=== PATIENT | female | born 1990 | race African-American/Black ===

== ENCOUNTER 2017-05-18 22:23 | Emergency (ER) | payer SELFPAY ==
[2017-05-18] MEDS ORDERED: Lidocaine 4% Cream 5 GM TUBE w/ Tegaderm ONE (23:20)
[2017-05-18] MEDS ORDERED: Lidocaine 2% Jelly 5 ML TUBE ONE (23:33)
== END 2017-05-18 23:52 | disposition home or self-care (01) ==
LOC: ERS 22:23
DX: H60.02 Abscess of left external ear (principal); F17.210 Nicotine dependence, cigarettes, uncomplicated
CPT/HCPCS: 69000

== ENCOUNTER 2017-10-11 18:10 | Emergency (ER) | payer SELFPAY ==
[2017-10-11 18:46] LABS: #Basophils 0.1 thou/uL (0.0-0.2); #Eosinphils 0.3 thou/uL (0.0-0.7); #Lymphocytes 3.9 thou/uL (1.20-3.40); #Monocytes 1.2 thou/uL (0.11-0.59); #Neutrophils 9.5 thou/uL (1.40-6.50); %Basophils 0.4 % (0.0-1.0); %Eosinophils 1.9 % (0.0-10.0); %Lymphocytes 26.1 % (21.0-51.0); %Monocytes 7.8 % (0.0-10.0); %Neutrophils 63.7 % (42.0-75.0); Hemoglobin 11.5 g/dL (12.0-16.0); Mean Corpuscular HGB CONC 32.8 g/dL (32.0-36.0); Mean Corpuscular Hemoglobin 22.3 pg (27.0-31.0); Mean Platelet Volume 8.7 fL (7.4-10.4); Platelet Count 277 thou/uL (130-400); RBC Distribution Width 13.5 % (11.5-14.5); Red Blood Cell (RBC) Count 5.17 mill/uL (4.20-5.40); White Blood Cell (WBC) Count 14.9 thou/uL (4.8-10.8)
[2017-10-11 18:56] LABS: ALT (SGPT) 7 U/L (8-55); AST (SGOT) 14 U/L (5-34); Alkaline Phosphatase 104 U/L (40-150); Anion Gap 12 mmol/L (10-20); BUN (Urea Nitrogen) 7 mg/dL (7.0-18.7); Bilirubin, Total 0.4 mg/dL (0.2-1.2); CK (CPK) 144 U/L (29-168); Calc. Creatinine Clearance 0 mL/min (70-130); Calcium 9.4 mg/dL (7.8-10.44); Carbon Dioxide 24 mmol/L (22-29); Chloride 106 mmol/L (98-107); Estimated GFR-MDRD Greater than 90; Glucose 76 mg/dL (70-105); Lipase 35 U/L (8-78); Potassium 3.9 mmol/L (3.5-5.1); Sodium 138 mmol/L (136-145)
[2017-10-11 19:00] LABS: Anisocytosis SLIGHT = 6-15 cells (100X) (0-5/hpf); Hypochromia SLIGHT = 6-15 cells (100X) (0-5/hpf); Large Platelets SLIGHT; MDiff Complete? YES; Microcytosis SLIGHT = 6-15 cells (100X) (0-5/hpf); Ovalocytes SLIGHT = 2-5 cells (100X) (0-1/hpf); PLT Morphology Comment Appears Adequate; Polychromasia SLIGHT = 2-3 cells (100X) (0-2/hpf)
[2017-10-11 19:01] LABS: CKMB 0.5 ng/mL (0-6.6); Troponin I Less than 0.010 ng/mL (< 0.028)
[2017-10-11 19:03] LABS: BHCG - Serum Negative (NEGATIVE); Pregs Control Background? CLEAR/WHITE (CLR/WHITE); Pregs Control Bar Appear? YES (CONTROL BAR)
[2017-10-11] MEDS ORDERED: Lidocaine Viscous Sol 2% 15 ml UD Cup ONE (19:51)
[2017-10-11] MEDS ORDERED: Mag-Al 1200 mg/1200 mg/30 ML UDCUP ONE (19:51)
[2017-10-11 20:32] LABS: Bilirubin Negative (Negative); Blood, Urine Negative (Negative); Clarity CLOUDY (Clear); Glucose, Urine (Dipstick) Negative (Negative); Leukocyte Moderate (Negative); Nitrite Negative (Negative); Protein, Urine (Dipstick) Negative (Neg-Trace); Specific Gravity, Urine 1.018 (1.002-1.036)
--- NOTE | 2017-10-11 20:36 | ULT ---
GALLBLADDER ULTRASOUND: 10/11/17 HISTORY: Right upper quadrant pain. Real time imaging of the right upper quadrant shows fairly normal appearing gallbladder. No stones id entified. The common duct is 2 mm. The visualized liver parenchyma appears to be of mild increased ec hogenicity. The pancreas is obscured. Right kidney is normal in size and nonobstructed. IMPRESSION: Suggestion of some fatty change of the liver. No gallstones. POS: [facility]
[2017-10-11 20:37] LABS: Bacteria/HPF None Seen HPF (None Seen); Hyaline Casts/LPF 0-3 HYALINE CAST LPF (0-3 Hyaline); Pathc Cast-AUWi Flag 0.43 (0-2.49); Squamous Epithelial 0-3 HPF (0-3); WBC/HPF 21-50 HPF (0-3)
[2017-10-11 20:46] LABS: RBC/HPF 0-3 HPF (0-3)
== END 2017-10-11 21:05 | disposition home or self-care (01) ==
LOC: ERS 18:10
DX: R10.13 Epigastric pain (principal); F17.210 Nicotine dependence, cigarettes, uncomplicated
CPT/HCPCS: 76705; 80053; 81003; 81015; 82553; 83690; 84484; 84703; 85025; 93005

== ENCOUNTER 2018-11-30 13:31 | Outpatient (CLI) | payer MEDICAID ==
--- NOTE | 2018-11-30 14:36 | ULT ---
Ultrasound early obstetrical: DATE: 11/30/2018 HISTORY: 28-year-old female "Z 34.81, encounter for supervision of otherwise normal , first trimester " FINDINGS: Intrauterine gestational sac. pole, intrauterine. [place]-rump length range 20.5 cm - 26.4 cm, corresponding to 8 weeks 4 days to 9 weeks 0 days. Average ultrasound age 8 weeks 5 days. heart rate 155 bpm. No subchorionic hemorrhage. 1.5 cm right ovarian dominant follicle versus corpus luteal cyst. Ovarian size bilaterally within normal limits. No free fluid in the cul-de-sac. IMPRESSION: Live first trimester intrauterine gestation estimated to be approximately 8 weeks 5 days gestational age.
== END 2018-11-30 13:32 | disposition home or self-care (01) ==
LOC: BICULT 13:31
PROVIDERS: ATTEND Nurse Practitioner
DX: Z34.81 Encounter for supervision of other normal pregnancy, first trimester (principal); Z3A.08 8 weeks gestation of pregnancy
CPT/HCPCS: 76856

== ENCOUNTER 2019-02-21 14:25 | Outpatient (CLI) | payer OTHER ==
--- NOTE | 2019-02-21 15:17 | ULT ---
US OB Complete STANDARD History: Anatomy scan Comparison: Pelvic ultrasound 11/30/2018 Findings: Real-time grayscale, color, and spectral analysis of the gravid uterus was performed. Singl e viable intrauterine with average ultrasound age 21 week 4 day with estimated date of delivery June 30, 2019. The estimated weight is 15 ounces, 67th percentile. Biometry: Biparietal diameter: 5.16 cm, 21 week 5 day Head circumference: 19.45 cm, 21 week 5 day Abdominal circumference: 16.69 cm, 21 week 5 day Femur length: 3.47 cm, 21 weeks 0 day heart rate documented at 147 bpm. Amniotic fluid index: 14.9 cm. Cervical length: 4.8 cm Anatomy: The head, cerebellum, cisterna magna, lateral ventricles, four-chamber heart, stomach, kidne ys, cord insertion, bladder, spine, lips/nose, upper extremities, lower extremities, three-vessel cord are all normal. Impression: Normal single viable uterine .
== END 2019-02-21 14:26 | disposition home or self-care (01) ==
LOC: BICULT 14:25
DX: Z34.82 Encounter for supervision of other normal pregnancy, second trimester (principal); Z3A.21 21 weeks gestation of pregnancy
CPT/HCPCS: 76805

== ENCOUNTER 2019-05-10 15:36 | Outpatient (CLI) | payer OTHER ==
--- NOTE | 2019-05-10 16:31 | ULT ---
Limited Obstetrical Ultrasound INDICATION: Evaluate interval growth TECHNIQUE: Grayscale, M-mode Doppler, color Doppler and spectral Doppler images were obtained. Masood palencia is focused on the clinical indication. COMPARISON: February 21, 2019 FINDINGS: GESTATION: Number of gestations: Single. Presentation: Cephalic. heart rate: 126 bpm. Placental location: Anterior Previa: No evidence for previa. Cervical length: 4.22 DARRIN: 7.47 cm. LIMITED SURVEY: No abnormality as visualized. BIOMETRY: Biparietal diameter: 8.00cm, 32 weeks and 1 day, Not calculated.. Head circumference: 29.25 cm, 32 weeks and 2 days, Not calculated. Abdominal circumference: 28.58 cm, 32 weeks and 5 days, Not calculated. Femoral length: 6.15cm, 32 weeks and 0 days, Estimated weight: 1949 g g +/- 285g 4 lbs. 5 oz., 45th percentile The average gestational age by ultrasound is 32 weeks and 2 dayswith estimated due date of June. The estimated dates by clinical data is 32 weeks and 1 daywith estimated due date of July 04, 2019 . IMPRESSION: 1. Single live intrauterine gestation with size and dates as above. 2. Oligohydramnios. The DARRIN is below the 2.5th percentile for gestational age
== END 2019-05-10 15:37 | disposition home or self-care (01) ==
LOC: BICULT 15:36
PROVIDERS: ATTEND Obstetrics & Gynecology
DX: Z34.83 Encounter for supervision of other normal pregnancy, third trimester (principal); Z3A.32 32 weeks gestation of pregnancy; O41.03X0 Oligohydramnios, third trimester, not applicable or unspecified
CPT/HCPCS: 76815

== ENCOUNTER 2019-05-14 14:33 | Day surgery (SDC) | payer OTHER ==
[2019-05-14 15:03] VITALS: BP 119/73; TEMP 98.7; BMI 41.8
--- NOTE | 2019-05-14 16:19 | ULT ---
Exam: Nonstress biophysical profile HISTORY: Low amniotic fluid index COMPARISON: None TECHNIQUE: Nonstress biophysical profile was performed FINDINGS: Cervix: 5.6 cm Posterior placenta. No evidence of previa heart tones: 121 bpm Amniotic fluid index 9.4 cm Nonstress biophysical profile: tone 2 breathing 2 movements 2 Amniotic fluid 2 Total score 8 out of 8 IMPRESSION: Nonstress physical profile with a total score 8 out of 8
== END 2019-05-14 16:30 | disposition home or self-care (01) ==
LOC: L&D/OP 14:33
PROVIDERS: ATTEND Obstetrics & Gynecology
DX: O41.00X0 Oligohydramnios, unspecified trimester, not applicable or unspecified (principal); Z3A.00 Weeks of gestation of pregnancy not specified
CPT/HCPCS: 76819

== ENCOUNTER 2019-06-14 14:57 | Observation (INO) | payer OTHER ==
[2019-06-14 15:47] VITALS: BP 127/73; TEMP 98.1; BMI 42.0
--- NOTE | 2019-06-14 16:53 | ULT ---
Sonographic biophysical profile exam HISTORY: Oligohydramnios. FINDINGS: Good movement, tone, and breathing movement were demonstrated with sonography. Amniotic fluid index 3.7. The deepest pocket is in quadrant 2, measuring 2.0 cm greatest depth. IMPRESSION: Biophysical profile score 6/8. Oligohydramnios.
[2019-06-14] MEDS: Lactated Ringer's 1,000 ML IV SCH (17:52)
[2019-06-14] MEDS ORDERED: Ondansetron PF 4 MG/2 ML Vial IVP PRN (18:27)
[2019-06-14] MEDS ORDERED: Promethazine HCl 25 MG/ML VIAL IM PRN (18:27)
[2019-06-14] MEDS ORDERED: hydrALAZINE 20 MG/ML VIAL SLOW IVP PRN (18:27)
[2019-06-14] MEDS ORDERED: Betamet Acet/Betamet Na Ph 30 MG/5 ML VIAL ONE (18:38)
[2019-06-14] MEDS: Betamet Acet/Betamet Na Ph 30 MG/5 ML VIAL IM SCH (19:00)
[2019-06-15] MEDS: Lactated Ringer's 1,000 ML IV SCH (10:03)
--- NOTE | 2019-06-15 16:42 | ULT ---
OBSTETRIC SONOGRAM THIRD TRIMESTER?? UMBILICAL ARTERY DUPLEX? HISTORY: Third trimester gestation. Oligohydramnios. distress. FINDINGS: Single intrauterine gestation in breech presentation. Grade 2 placenta is anterior. Advance d age limits anatomic detail. Lower uterine segment is obscured. Amniotic fluid index 4.0 Good color and spectral Doppler flow within the umbilical artery. Systolic/diastolic ratio 2.4 Pulsatility index 0.9 Resistive index 0.6. IMPRESSION: Umbilical artery duplex evaluation within normal limits. Oligohydramnios. DARRIN 4.0.
[2019-06-15] MEDS: Betamet Acet/Betamet Na Ph 30 MG/5 ML VIAL IM SCH (18:43)
== END 2019-06-15 18:56 | disposition home or self-care (01) ==
LOC: L&D/OP 14:57 → L&D 18:27
PROVIDERS: ADMIT Family Medicine; ATTEND Family Medicine
DX: O41.03X0 Oligohydramnios, third trimester, not applicable or unspecified (principal); Z3A.37 37 weeks gestation of pregnancy
CPT/HCPCS: 76815; 76819; 93975; 96360; 96361; 96372; 99285; G0378; J0702

== ENCOUNTER 2019-06-16 15:04 | Day surgery (SDC) | payer OTHER ==
[2019-06-16] MEDS ORDERED: hydrALAZINE 20 MG/ML VIAL SLOW IVP PRN (15:35)
--- NOTE | 2019-06-16 16:10 | PDOC.FPROB ---
FMR OB H&P: Medications - Current Home Medications: Medication Instructions Recorded Confirmed Type No Known 05/14/19 06/14/19 History Allergies/Adverse Reactions: Allergies Allergy/AdvReac Type Severity Reaction Status Date / Time No Known Allergies Allergy Verified 05/14/19 15:00 FMR OB H&P: A/P - Problem List (1) Oligohydramnios Current Visit: Yes Status: Acute Code(s): O41.00X0 - OLIGOHYDRAMNIOS, UNSP TRIMESTER, NOT APPLICABLE OR UNSP (2) Term Current Visit: Yes Status: Acute Code(s): Z34.90 - ENCNTR FOR SUPRVSN OF NORMAL , UNSP, UNSP TRIMESTER Discussion: Date/Time: 06/16/19 1604 PCP: Wayne HPI: This is a 28 yo at 37.3 wks who comes in for decreased movement. She was here 2 days ago and told she had DARRIN of 4cm. She states she has not felt baby moving since about 5 am this morning, 10 hours ago. She denies leakage of fluid, bleeding, or discharge. Denies BROWN, visual changes, SOB, or swelling. History: OB hx: term 8 years ago PMH: denies asthma, dm, htn PSH: negative Meds: PNV All: NKDA Soc Hx: denies smoking (former smoker b4 ), alcohol, drugs Fam Hx: denies downs, sickle cell disease, or congenital defects GBS: unknown Blood type: B+ Ab screen: neg HIV: neg RPR: neg Hep B: neg Rubella: immune Failed 1 hr gtt, passed 3hr GC/CT: neg REVIEW OF SYSTEMS: Gen: no fever, chills, or sweats Neuro: no numbness/tingling, no weakness, denies headache ENT: denies congestion Eyes: no visual changes Resp: denies cough, no production, no SOB, no wheeze Card: denies chest pain, no palpitations GI: denies nausea, vomiting, diarrhea : no dysuria, no hematuria Skin: no rash, no erythema Psych: denies hx anxiety/depression Vitals: T: 98.5 R: 18 BP: 128/73 P:80 at: 98% on RA PHYSICAL EXAMINATION: General: NAD, alert and oriented x3 HEENT: EOMI, normal sclera Neck: Supple. Full ROM. Heart/Cardiovascular System: RRR, Cap refill < 3 seconds, no rub, no murmur Lungs/Respiratory System: clear to auscultation bilaterally. No increased work of breathing. Room air. Abdomen/Gastro-Intestinal System: no abdominal tenderness, normal bowel sounds, Gravid Extremities: Warm extremities. No cyanosis or edema. Neuro: No gross deficits appreciated Psychiatry: Awake, Alert and cooperative with exam Skin: no lesions, no rashes Musculoskeletal: Full ROM A/P: This is a 28 yo at 37.3 wks who comes in for decreased movement. FHT: 120 baseline, mod variability, no decels, accels present [place]: no contractions # -term - GBS unknown, patient is sure it was negative and she talked about it office , instructed her to f/u on Tuesday - Breech presentation once again today - has follow up with Dr. Black in clinic Tuesday to discuss version vs c/s # Oligohydramnios- resolved - Known since 32wks per review of notes - DARRIN 4.0, bpp 6/8 on 06/14/19 Pre-segura read DARRIN 8.9, bpp 8/8 on 06/16/19 6lbs 12 oz- hadlock 50%, s/d ratio pending D/c home, labor precautions discussed, all questions answered
[2019-06-16 16:43] VITALS: BMI 42.0
--- NOTE | 2019-06-16 16:46 | ULT ---
Limited Obstetrical Ultrasound INDICATION: Growth and umbilical artery evaluation TECHNIQUE: Grayscale, M-mode Doppler, color Doppler and spectral Doppler images were obtained. Imagin g is focused on the clinical indication. COMPARISON: Prior exam dated June 15, 2019 FINDINGS: GESTATION: Number of gestations: Single. Presentation: Breech. heart rate: 131 bpm. Placental location: Anterior Previa: No evidence for previa. Cervical length: Not well evaluated DARRIN: 8.9 cm. LIMITED SURVEY: Limited BIOMETRY: Biparietal diameter: 9.04cm, 36 weeks 4 days, 46 percentile. Head circumference: 32.84 cm, 37 weeks and 2 days, 24th percentile Abdominal circumference: 33.27 cm, 37 weeks and 1 day, 59th percentile Femoral length: 7.05cm, 36 weeks and 1 day, 19th percentile Estimated weight: 3056 g +/- 452g 6 lbs. 12 oz. +/- 16 ounces, 44th percentile The average gestational age by ultrasound is 36 weeks and 6 dayswith estimated due date of July. The estimated dates by clinical data is 37 weeks and 3 dayswith estimated due date of July 04 0. Umbilical artery spectral Doppler imaging: There is persistent diastolic flow. The systolic diastolic ratio at the placenta was 2.27, at mid cord 1.97 and at the insertion 2.98. IMPRESSION: 1. Single live intrauterine gestation with size and dates as above.
--- NOTE | 2019-06-16 16:47 | ULT ---
LIMITED OBSTETRICAL ULTRASOUND FOR BIOPHYSICAL PROFILE INDICATION: Decreased movement TECHNIQUE: Grayscale, M-mode Doppler, color Doppler and spectral Doppler images were obtained. Biophy sical profile was submitted by the mechanical engineering technician. Imaging is focused on the clinical indication. COMPARISON: No relevant prior studies available. GESTATION: Number of gestations: Single. Presentation: Breech. heart rate: 131 bpm. Placental location: Anterior Previa: No evidence for previa. Cervical length: Not well seen DARRIN: 8.9 cm. Biophysical profile: tone: 2 out of 2. breathin out of 2 movements: 2 out of 2 Amniotic fluid level: 2 out of 2 IMPRESSION: 1. Biophysical profile of 8 out of 8 2. Breech presentation.
== END 2019-06-16 16:58 | disposition home or self-care (01) ==
LOC: L&D/OP 15:04
PROVIDERS: ATTEND Family Medicine
DX: O41.03X0 Oligohydramnios, third trimester, not applicable or unspecified (principal); O36.8130 Decreased fetal movements, third trimester, not applicable or unspecified; Z3A.37 37 weeks gestation of pregnancy; Z87.891 Personal history of nicotine dependence
CPT/HCPCS: 59025; 76815; 76819; 93975; 99282

== ENCOUNTER 2019-06-18 14:01 | Day surgery (SDC) | payer OTHER ==
--- NOTE | 2019-06-18 16:42 | ULT ---
ULTRASOUND BIOPHYSICAL PROFILE DOPPLER DUPLEX: DATE: 06-18-2019 HISTORY: 28-year-old female in 3rd trimester of with oligohydramnios. TECHNIQUE: Grayscale, color flow, and spectral analysis, limited, of intrauterine gestation, and umbilical arter y. FINDINGS: breathin tone: 2 movement: 2 Amniotic fluid volume: 2 Umbilical artery perimeters: Peak systolic velocity, end diastolic velocity, S/D ratio, and resistive index: At placenta: 38.9 cm/s, 18.2 cm/s, 2.14, 0.53 At mid-umbilicus: 29.1 cm/s, 13.2 cm/s, 2.20, 0.55 At cord insertion: 45.4 cm/s, 13.2 cm/s, 3.44, 0.71 heart rate: 125 bpm DARRIN: 8 cm lie: Breech IMPRESSION: 1. Normal biophysical profile score of 8/8, excluding the non-stress test. 2. Umbilical artery Doppler values as above. jn POS: OFF
[2019-06-18] MEDS ORDERED: hydrALAZINE 20 MG/ML VIAL SLOW IVP PRN (17:10)
--- NOTE | 2019-06-18 17:12 | PDOC.LDHP ---
Labor and Delivery H&P Chief complaint: other (NST/BPP) HPI: 28 y/o at 37w5d, patient of Dr. Black, presents for scheduled NST/BPP for oligohydramnios. Patient has no complaints today. Denies VB, LOF, ctx, or decreased FM. ROS neg for HEENT, CV, pulm, GI, , neuro, psych, skin, musculoskeletal, or constitutional symptoms other than mentioned above. OB History Details: 1 prior term Current complications: oligohydramnios Past Medical History: None Current medications: pre- vitamins Previous surgical history: none Allergies/Adverse Reactions: Allergies Allergy/AdvReac Type Severity Reaction Status Date / Time No Known Allergies Allergy Verified 06/16/19 16:50 Social history: none - Physical Exam Vital signs reviewed and normal: yes General: NAD, resting Lungs: nonlabored breathing Abdomen: gravid FHT: category 1 (130s, mod variability, + accels, no decels) [place] contractions every: None - Assessment 28 y/o at 37w5d with BPP 8/8 (fluid now normal) and reactive NST. Also , noted to be breech on US. - Plan -: Will see Dr. Black in clinic on . D/c home with precautions.
== END 2019-06-18 16:04 | disposition home or self-care (01) ==
LOC: L&D/OP 14:01
PROVIDERS: ATTEND Family Medicine
DX: O41.03X0 Oligohydramnios, third trimester, not applicable or unspecified (principal); O32.1XX0 Maternal care for breech presentation, not applicable or unspecified; Z3A.37 37 weeks gestation of pregnancy
CPT/HCPCS: 76819; 93975; 99282

== ENCOUNTER 2019-06-21 08:36 | Day surgery (SDC) | payer OTHER ==
[2019-06-21 09:17] VITALS: BMI 42.0
[2019-06-21] MEDS ORDERED: hydrALAZINE 20 MG/ML VIAL SLOW IVP PRN (12:09)
[2019-06-21 12:42] LABS: Bilirubin Negative (Negative); Blood, Urine Negative (Negative); Clarity Clear (Clear); Glucose, Urine (Dipstick) Normal (Negative); Leukocyte Negative Leu/uL (Negative); Nitrite Negative (Negative); Protein, Urine (Dipstick) Negative (Neg-Trace); RBC/HPF 0-3 HPF (0-3); Squamous Epithelial 0-3 HPF (0-3); Urobilinogen Normal mg/dL (Less than 2); WBC/HPF 0-3 HPF (0-3)
[2019-06-21 12:43] LABS: Bacteria/HPF 1+ HPF (None Seen)
--- NOTE | 2019-06-21 12:57 | PRG ---
DATE OF SERVICE: 06/21/2019 PRIMARY OB: Dr. Robb Black. CHIEF COMPLAINT: Discharge. HISTORY OF PRESENT ILLNESS: The patient is a 28-year-old G2, P1 female with an intrauterine at 38 weeks and even, who presented to Labor and Delivery today after experiencing some discharge. She reports the discharge first looked thin and then became green. She had an appointment to see Dr. Black this morning, but for reasons unclear to staff here, she chose to come to the hospital for evaluation. The patient reports she has been having some contractions off and on in the last few days, but does not report any currently. The patient denies any history of gonorrhea and chlamydia. Denies fever, cough, fall, headache, chest pain, shortness of breath, nausea, vomiting, diarrhea, constipation, hip problems, knee problems. She has been having some lower back problems. She denies any vaginal bleeding, urinary urgency or frequency. PAST MEDICAL HISTORY: Negative. PAST SURGICAL HISTORY: Negative. ALLERGIES: NO KNOWN DRUG ALLERGIES. MEDICATIONS: vitamins. SOCIAL HISTORY: Denies drug, alcohol, tobacco use. OB LABS: Blood type is B positive. Antibody screen is negative. RPR is nonreactive in the first and third trimester. HIV nonreactive in the first and third trimester. Hepatitis B surface antigen is negative. She is rubella immune. GC and chlamydia negative. Her 1-hour glucose is 145 with her 3 hour at 190, 148, and 126. GBS is unavailable. REVIEW OF SYSTEMS: Per HPI. PHYSICAL EXAMINATION: VITAL SIGNS: Blood pressure 134/75, heart rate of 81, respiratory rate of 16, temperature 98.3. GENERAL: She appears to be in no acute distress. She is alert, oriented, cooperative, and pleasant to interact with. HEAD: Normocephalic, atraumatic. LUNGS: Clear to auscultation bilaterally. HEART: Regular rate and rhythm. ABDOMEN: Gravid, soft, nontender. EXTREMITIES: Nontender, nonedematous. She has no CVA tenderness. She does have some SI joint tenderness to palpation. GENITALIA: Vulva was without masses, lesions, or erythema. She does have what appears to be, she has moistening of her perineum. On speculum exam, the vagina is moist, discharge is mucousy with a greenish exudate present. Cervix is closed on digital exam. heart tracing shows the fetus with a baseline in the 120s with moderate long-term variability, positive 15 x 15 accelerations, no decelerations. Tocometer showing contractions about every 7 to 10 minutes. VPIII is negative for Trichomonas, yeast and Gardnerella. UA and GC chlamydia are pending. ASSESSMENT AND PLAN: The patient is a 28-year-old G2, P1 female with an intrauterine at 38 weeks, who is presenting for increased discharge over the course of the day. The patient has no evidence of yeast infection, bacterial vaginosis or Trichomonas given the color of her discharge. GC and chlamydia have been collected, which should result in next few days. Urinalysis also has been collected. The patient does not need to wait for the results of these items as fetus has a category 1 tracing and reactive NST. The patient's provider reported that she can come followup next week with him. Job ID: [id number]
[2019-06-22] MEDS ORDERED: FLU VACC QS2019-20(6MOS UP)/PF 60 MCG/0.5 ML SYRINGE IM ONE (09:30)
[2019-06-23 21:58] LABS: Chlamydia by PCR Not Detected (NotDetected); GC by PCR Not Detected (NotDetected)
== END 2019-06-21 12:25 | disposition home or self-care (01) ==
LOC: L&D/OP 08:36
PROVIDERS: ATTEND Family Medicine
DX: O99.89 Other specified diseases and conditions complicating pregnancy, childbirth and the puerperium (principal); N89.8 Other specified noninflammatory disorders of vagina; Z3A.38 38 weeks gestation of pregnancy
CPT/HCPCS: 81001; 87480; 87491; 87510; 87591; 87660; 99285

== ENCOUNTER 2019-06-27 19:45 | Inpatient (IN) | payer OTHER ==
[2019-06-28] MEDS ORDERED: Misoprostol 200 MCG TAB PR PRN (00:33)
[2019-06-28] MEDS ORDERED: Butorphanol Tartrate 1 MG/ML VIAL SLOW IVP PRN (00:33)
[2019-06-28] MEDS ORDERED: Ibuprofen 800 MG TAB PO PRN (00:33)
[2019-06-28] MEDS ORDERED: Diphenoxylate HCl/Atropine Tablet PO PRN (00:33)
[2019-06-28] MEDS ORDERED: HYDROcodone/Acetaminophen 5/325 mg Tablet PO PRN ×3 (00:33→15:49)
[2019-06-28] MEDS ORDERED: Carboprost 250 MCG/ML AMP IM PRN (00:33)
[2019-06-28] MEDS ORDERED: NS w/ Oxytocin 10 units 500 ML IV SCH ×2 (00:33)
[2019-06-28] MEDS ORDERED: hydrALAZINE 20 MG/ML VIAL SLOW IVP PRN ×2 (00:33→15:49)
[2019-06-28] MEDS ORDERED: Methylergonovine 0.2 MG/ML VIAL IM PRN (00:33)
[2019-06-28] MEDS ORDERED: Ondansetron PF 4 MG/2 ML Vial IVP PRN ×3 (00:33→15:49)
[2019-06-28] MEDS ORDERED: Lidocaine 1% (PF) 30 ML VIAL SC PRN (00:33)
[2019-06-28] MEDS ORDERED: Promethazine HCl 25 MG/ML VIAL IM PRN ×3 (00:33→15:49)
[2019-06-28 00:38] VITALS: BMI 42.2
[2019-06-28] MEDS: Lactated Ringer's 1,000 ML IV SCH ×3 (01:08→09:38)
[2019-06-28] MEDS: Misoprostol 100 MCG TAB PO SCH ×2 (01:29→05:01)
[2019-06-28 01:47] LABS: Hemoglobin 11.9 g/dL (12.0-16.0); Mean Corpuscular HGB CONC 33.9 g/dL (32.0-36.0); Mean Corpuscular Hemoglobin 23.7 pg (27.0-31.0); Mean Corpuscular Volume 69.9 fL (78.0-98.0); Mean Platelet Volume 9.6 fL (7.4-10.4); Platelet Count 242 thou/uL (130-400); RBC Distribution Width 13.8 % (11.5-14.5); Red Blood Cell (RBC) Count 5.01 mill/uL (4.20-5.40)
[2019-06-28 02:19] LABS: Hep B Surf Ag Non-Reactive S/CO (NonReactive)
[2019-06-28 03:38] LABS: Syphilis Antibody Nonreactive (Nonreactive); Syphilis Antibody Index 0.07 S/CO (<1.00 Non-Reactive)
[2019-06-28] MEDS ORDERED: Fentanyl 4 mcg/Bup 0.1% Cadd 100 ML ONE (08:25)
[2019-06-28] MEDS ORDERED: Lidocaine 2% MPF 10 ML AMP (For Epidural Use) ONE (08:50)
[2019-06-28] MEDS ORDERED: ePHEDrine/0.9% NaCl/PF SYRINGE 50 mg/10 ml SLOW IVP PRN (09:22)
[2019-06-28] MEDS ORDERED: Naloxone HCl 0.4 mg/ml Vial IVP PRN ×2 (09:22)
[2019-06-28] MEDS ORDERED: diphenhydrAMINE 50 MG/ML VIAL IVP PRN (09:22)
[2019-06-28] MEDS ORDERED: Lactated Ringer's 500 ML IV PRN (09:22)
[2019-06-28] MEDS ORDERED: Acetaminophen 325 MG TAB PO PRN (09:22)
[2019-06-28] MEDS ORDERED: Fentanyl 4 mcg/Bupivacaine 0.1% Cassette 100 ML EPIDURAL SCH (09:30)
[2019-06-28] MEDS ORDERED: Communication Order-Pharmacy FS SCH (09:30)
[2019-06-28] MEDS: NS / Oxytocin 40 units/1000ml 1,000 ML IV PRN ×2 (12:55→13:54)
[2019-06-28] MEDS ORDERED: diphenhydrAMINE 25 MG CAP PO PRN (15:49)
[2019-06-28] MEDS ORDERED: Bisacodyl 10 MG SUPP PR PRN (15:49)
[2019-06-28] MEDS ORDERED: NS / Oxytocin 40 units/1000ml 1,000 ML IV SCH (15:49)
[2019-06-28] MEDS ORDERED: Benzocaine-Menthol 82.5 ML CAN TOP PRN (15:49)
[2019-06-28] MEDS ORDERED: Milk Of Magnesia 30 ML UDCUP PO PRN (15:49)
[2019-06-28] MEDS ORDERED: Lanolin Ointment 7 GM TUBE TOP PRN (15:49)
[2019-06-28] MEDS: Ibuprofen 800 MG TAB PO SCH ×2 (16:59→23:50)
[2019-06-28] MEDS: Docusate Calcium (SURFAK) 240 MG CAP PO SCH (19:20)
[2019-06-28] MEDS: Ferrous Sulfate 325 MG TAB PO SCH (23:51)
[2019-06-29] MEDS: Ibuprofen 800 MG TAB PO SCH ×2 (05:48→14:36)
[2019-06-29] MEDS: Misoprostol 100 MCG TAB PO SCH ×2 (05:48→05:49)
[2019-06-29 06:06] LABS: Hemoglobin 10.9 g/dL (12.0-16.0); Mean Corpuscular HGB CONC 34.5 g/dL (32.0-36.0); Mean Corpuscular Hemoglobin 24.4 pg (27.0-31.0); Mean Corpuscular Volume 70.8 fL (78.0-98.0); Mean Platelet Volume 9.1 fL (7.4-10.4); Platelet Count 214 thou/uL (130-400); RBC Distribution Width 13.7 % (11.5-14.5); Red Blood Cell (RBC) Count 4.45 mill/uL (4.20-5.40); White Blood Cell (WBC) Count 15.6 thou/uL (4.8-10.8)
[2019-06-29] MEDS ORDERED: Prenatal Vitamin 1 TAB PO SCH (09:00)
[2019-06-29] MEDS ORDERED: Adacel (T-DAP) 0.5 ML SYRINGE IM ONE (09:00)
[2019-06-29] MEDS: Docusate Calcium (SURFAK) 240 MG CAP PO SCH (09:39)
[2019-06-29] MEDS: Ferrous Sulfate 325 MG TAB PO SCH (09:39)
[2019-06-29 11:09] VITALS: BP 126/79; TEMP 98.3
== END 2019-06-29 16:40 | disposition home or self-care (01) | DRG 807 ==
LOC: L&D 06-28 00:04 → 3SW 06-28 16:28
PROVIDERS: ADMIT Family Medicine; ATTEND Family Medicine
PROC: 10E0XZZ Delivery of Products of Conception, External Approach (ICD-10-PCS; principal; 2019-06-28)
PROC: 0HQ9XZZ Repair Perineum Skin, External Approach (ICD-10-PCS; 2019-06-28)
PROC: 10907ZC Drainage of Amniotic Fluid, Therapeutic from Products of Conception, Via Natural or Artificial Opening (ICD-10-PCS; 2019-06-28)
PROC: 3E0P7VZ Introduction of Hormone into Female Reproductive, Via Natural or Artificial Opening (ICD-10-PCS; 2019-06-28)
DX: O41.00X0 Oligohydramnios, unspecified trimester, not applicable or unspecified (principal); Z37.0 Single live birth; Z3A.39 39 weeks gestation of pregnancy; O99.214 Obesity complicating childbirth; E66.9 Obesity, unspecified
CPT/HCPCS: 36415; 51702; 85027; 86780; 86850; 86900; 86901; 87340; J0595; J2001